=== PATIENT | female | born 1985 | race Caucasian/White ===

== ENCOUNTER 2017-03-10 08:24 | Inpatient (IN) | payer MEDICAID ==
[2017-03-10] MEDS ORDERED: CARBOPROST 250 MCG INJ IM (12:00)
[2017-03-10] MEDS ORDERED: OXYTOCIN 30 UNITS/LR 500 ML IV (12:00)
[2017-03-10] MEDS ORDERED: METHYLERGONOVINE 0.2 MG INJ IM (12:00)
[2017-03-10] MEDS ORDERED: CEFAZOLIN 2 GM/50 ML (PMX) 50 ML IV (12:00)
[2017-03-10 13:37] LABS: ADD MAN DIFF? NO
[2017-03-10 13:40] LABS: WHITE BLOOD COUNT 7.4 10^3/ul (4.8-10.8)
[2017-03-10 13:40] LABS: BASOPHILS % 0.1 % (0.0-2.0); HEMATOCRIT 35.2 % (37.0-47.0); HEMOGLOBIN 11.4 g/dl (12.0-16.0); LYMPHOCYTES # 2.4 10^3/ul (0.8-2.9); LYMPHOCYTES % 32.3 % (15.0-51.0); MEAN CORPUSCULAR HEMOGLOBIN 26.1 pg (29.0-33.0); MEAN CORPUSCULAR HGB CONC 32.4 g/dl (32.0-37.0); MEAN CORPUSCULAR VOLUME 80.7 fl (82.0-101.0); MEAN PLATELET VOLUME 11.5 fl (7.4-10.4); MONOCYTE # 0.3 10^3/ul (0.3-0.9); MONOCYTES % 4.6 % (0.0-11.0); NEUTROPHIL # 4.6 10^3/ul (1.6-7.5); NEUTROPHILS % 62.7 % (39.0-77.0); PLATELET COUNT 260 10^3/UL (140-415); RED BLOOD COUNT 4.36 10^6/ul (4.20-5.40); RED CELL DISTRIBUTION WIDTH 13.2 % (11.5-14.5)
[2017-03-10 13:59] LABS: INR 0.93; PROTIME 12.6 Sec (11.9-14.9)
[2017-03-10 14:00] LABS: PARTIAL THROMBOPLASTIN TIME 29.8 Sec (25.0-35.0)
[2017-03-10] MEDS: LACTATED RINGER'S 1,000 ML IV (14:10)
[2017-03-10 14:28] LABS: HEPATITIS B SURFACE ANTIGEN NEGATIVE (NEGATIVE)
[2017-03-10] MEDS ORDERED: ONDANSETRON 4 MG INJ ×2 (15:14→16:18)
[2017-03-10] MEDS ORDERED: CITRIC ACID/NA CITRATE 30 ML CUP (15:14)
[2017-03-10] MEDS ORDERED: OXYTOCIN 10 UNIT INJ (15:41)
[2017-03-10] MEDS ORDERED: PHENYLephrine (100 MCG/ML) 5ML SYG (15:41)
[2017-03-10] MEDS ORDERED: morphine SULFATE/PF (10 MG/10 ML) INJ (15:41)
[2017-03-10] MEDS ORDERED: FENTAnyl 50 MCG/ML VIAL (16:07)
[2017-03-10] MEDS ORDERED: DEXAMETHASONE 4 MG/ML 1 ML INJ (16:18)
[2017-03-10] MEDS ORDERED: KETOROLAC 30 MG INJ (16:18)
[2017-03-10] MEDS ORDERED: METOCLOPRAMIDE 10 MG INJ (16:18)
[2017-03-10] MEDS ORDERED: MEPERIDINE 100 MG INJ (16:29)
[2017-03-10] MEDS ORDERED: NALOXONE (0.4 MG/ML) INJ IV (16:30)
[2017-03-10] MEDS ORDERED: ONDANSETRON 4 MG INJ IV (16:30)
[2017-03-10] MEDS ORDERED: ACETAMINOPHEN 500 MG TAB PO (16:30)
[2017-03-10] MEDS ORDERED: morphine 4 MG/ML VIAL IV (16:30)
[2017-03-10] MEDS ORDERED: morphine 2 MG INJ IV (16:30)
[2017-03-10] MEDS ORDERED: HYDROmorphONE 0.5 MG/0.5 ML SYG IV ×2 (16:30)
[2017-03-10] MEDS ORDERED: HYDROCODONE/APAP (5/325) TAB PO (16:30)
[2017-03-10] MEDS ORDERED: NALBUPHINE HCL (10 MG/1 ML) INJ IV (16:30)
[2017-03-10] MEDS ORDERED: DIPHENHYDRAMINE 50 MG INJ IV (16:30)
[2017-03-10] MEDS: MISOPROSTOL 200 MCG TAB PR (17:14)
[2017-03-10] MEDS: OXYTOCIN 30 UNITS/LR 500 ML IV ×2 (19:22→19:25)
[2017-03-10 22:36] LABS: RAPID PLASMA REAGIN NONREACTIVE (NR)
[2017-03-11] MEDS: OXYTOCIN 30 UNITS/LR 500 ML IV (00:11)
[2017-03-11] MEDS: KETOROLAC 30 MG INJ IV ×3 (01:44→15:23)
[2017-03-11] MEDS: LACTATED RINGER'S 1,000 ML IV ×4 (03:52→19:52)
[2017-03-11 08:39] LABS: ADD MAN DIFF? NO
[2017-03-11 08:48] LABS: WHITE BLOOD COUNT 11.4 10^3/ul (4.8-10.8)
[2017-03-11 08:48] LABS: BASOPHILS % 0.1 % (0.0-2.0); HEMATOCRIT 27.7 % (37.0-47.0); HEMOGLOBIN 9.1 g/dl (12.0-16.0); LYMPHOCYTES % 17.9 % (15.0-51.0); MEAN CORPUSCULAR HEMOGLOBIN 26.8 pg (29.0-33.0); MEAN CORPUSCULAR HGB CONC 32.9 g/dl (32.0-37.0); MEAN CORPUSCULAR VOLUME 81.5 fl (82.0-101.0); MEAN PLATELET VOLUME 11.3 fl (7.4-10.4); MONOCYTE # 0.8 10^3/ul (0.3-0.9); MONOCYTES % 7.3 % (0.0-11.0); NEUTROPHIL # 8.5 10^3/ul (1.6-7.5); NEUTROPHILS % 74.3 % (39.0-77.0); PLATELET COUNT 186 10^3/UL (140-415); RED CELL DISTRIBUTION WIDTH 13.2 % (11.5-14.5)
[2017-03-11] MEDS: OXYCODONE/ACETAMINOPHEN (5/325) TAB PO ×2 (18:55→23:04)
[2017-03-11] MEDS: IBUPROFEN 800 MG TAB PO (21:29)
[2017-03-12] MEDS: OXYCODONE/ACETAMINOPHEN (5/325) TAB PO ×3 (03:15→22:57)
[2017-03-12] MEDS: LACTATED RINGER'S 1,000 ML IV (03:52)
[2017-03-12] MEDS: IBUPROFEN 800 MG TAB PO ×3 (05:45→22:57)
[2017-03-12] MEDS: LANOLIN 7 GM TUBE TOP (10:05)
[2017-03-13] MEDS: IBUPROFEN 800 MG TAB PO ×2 (06:33→13:26)
[2017-03-13] MEDS: OXYCODONE/ACETAMINOPHEN (5/325) TAB PO ×2 (12:13→16:06)
== END 2017-03-13 18:00 | disposition home or self-care (01) | DRG 766 ==
LOC: OBT 08:24 → L-D 08:24 → OBT 11:47 → L-D 11:30 → PP1 20:41
PROC: 10D00Z1 Extraction of Products of Conception, Low, Open Approach (ICD-10-PCS; principal; 2017-03-10 15:45)
PROC: 0UB70ZZ Excision of Bilateral Fallopian Tubes, Open Approach (ICD-10-PCS; 2017-03-10 15:45)
DX: O44.13 Complete placenta previa with hemorrhage, third trimester (principal); O34.211 Maternal care for low transverse scar from previous cesarean delivery; Z30.2 Encounter for sterilization; Z37.0 Single live birth; Z3A.36 36 weeks gestation of pregnancy
CPT/HCPCS: 76815; 76818; 85025; 85610; 85730; 86592; 86850; 86900; 86901; 86920; 87340; 88302; 88307; 94760

== ENCOUNTER 2017-03-15 13:19 | Emergency (ER) | payer MEDICAID | END 2017-03-15 14:44 | disposition home or self-care (01) | LOC: FTE 13:19 | DX: O90.2 Hematoma of obstetric wound (principal) | CPT/HCPCS: 99283; Z7502 ==